=== PATIENT | female | born 1975 | race American Indian/Alaskan Native ===

== ENCOUNTER 2016-04-25 08:35 | Outpatient (CLI) | payer BC ==
--- NOTE | 2016-04-25 11:17 | Mammography Report ---
Screening mammogram: Baseline examination. Routine views demonstrate a focal asymmetry in the lateral mid right breast seen only in the CC projection. Some mild architectural distortion. There is a focal asymmetry in the lateral left breast seen better on CC projection with questionable visualization inferiorly in the MLO view. The overall breast pattern is heterogeneously dense, symmetrically distributed, and otherwise unremarkable. CAD used. Impressions: Bilateral asymmetries. Recommendations: Additional spot compression imaging of both breasts and ultrasound as needed. BI-RADS CATEGORY: 0 = Needs additional imaging evaluation ACR BI-RADS MAMMOGRAPHIC CODES: 0 = Needs additional imaging evaluation; 1 = Negative; 2 = Benign; 3 = Probably benign; 4 = Suspicious; 5 = Malignant; 6 = Known biopsy-proven malignancy COMMENT: 1. Dense breast tissue, i.e., adenosis, fibrocystic changes, etc., may obscure an underlying neoplasm. 2. Approximately 10% of cancers are not detected with mammography. 3. A negative mammography report should not delay biopsy if a clinically suspicious mass is present.
== END 2016-04-25 08:36 | disposition home or self-care (01) ==
LOC: SPVWC 08:35
PROVIDERS: ATTEND Obstetrics & Gynecology
DX: Z12.31 Encounter for screening mammogram for malignant neoplasm of breast (principal)
CPT/HCPCS: 77067; G0202